=== PATIENT | female | born 1960 | race Caucasian/White ===

== ENCOUNTER 2019-08-24 10:07 | Outpatient (CLI) | payer BC ==
--- NOTE | 2019-08-24 10:35 | ULT ---
EXAM: US Abdominal CLINICAL HISTORY: Elevated liver enzymes. COMPARISON: None. FINDINGS: Pancreas: The head and proximal body of the pancreas have a normal echotexture IVC: Visualized IVC has a normal caliber. Aorta: Visualized aorta has a normal caliber. Liver:Heterogeneous echotexture of liver which may be due to hepatic steatosis or hepatocellular dise ase. Limited evaluation for hepatic masses and intrahepatic biliary dilatation. The contour of the hepatic margin is maintained. Right hepatic lobe measures 20.2 cm. Gallbladder: No sonographic evidence of cholelithiasis, gallbladder wall thickening or pericholecysti c fluid. Jameson's sign:Negative CBD: 0.4 cm common bile duct diameter Portal vein: Patent. Appropriate directional flow. Right kidney: Normal cortical echotexture. No hydronephrosis. Right kidney measuring 4.7 x 11.0 x 5. 2 cm in length. Left kidney: No hydronephrosis. Questionable dromedary hump versus midpole cortical mass, incompletel y evaluated.. Left kidney measuring 5.9 x 5.9 x 11.7 cm in length Spleen: Normal echotexture, measuring 10.6 cm IMPRESSION: 1. No sonographic evidence of cholelithiasis or cholecystitis 2. Degenerative changes echotexture liver which may be due to hepatic steatosis or hepatocellular dis ease. If there is concern for hepatic masses, liver mass protocol CT or abdomen MRI can be performed. Mild hepatomegaly 3. Questionable left renal mass. Further evaluation with abdomen MRI or CT using renal mass protocol is recommended CODE T
== END 2019-08-24 10:08 | disposition home or self-care (01) ==
LOC: BICULT 10:07
PROVIDERS: ATTEND Family Medicine
DX: R74.8 Abnormal levels of other serum enzymes (principal); R93.2 Abnormal findings on diagnostic imaging of liver and biliary tract; R16.0 Hepatomegaly, not elsewhere classified
CPT/HCPCS: 93975

== ENCOUNTER 2019-09-13 13:04 | Outpatient (CLI) | payer BC ==
--- NOTE | 2019-09-13 14:19 | CT ---
CT Abdomen W WO Con History: Renal mass. Comparison: Ultrasound abdomen August 24, 2019 Findings: Lung bases are clear. No pericardial effusion. Diffuse hepatic steatosis. 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 Left renal dromedary hump. No abnormal renal mass. No nephroureterolithiasis. No dilated loops of bowel in the abdomen. No acute osseous abnormality. L4/L5 degenerative disc space height loss with disc osteophyte complex. On the delayed phase of contrast no filling defects within the renal calyces, pelvis by, nor proximal ureter. The distal ureters are not interrogated on this exam. Small fat-containing umbilical hernia. Circumferential disc bulge at L3/L4 does cause some mild spina l canal narrowing. Impression: Left renal dromedary hump. No abnormal suspicious enhancing mass.
[2019-09-13] MEDS ORDERED: Iopamidol-370 76% 500 ML 1 ML ONE (16:29)
== END 2019-09-13 13:05 | disposition home or self-care (01) ==
LOC: BICCT 13:04
PROVIDERS: ATTEND Family Medicine
DX: N28.89 Other specified disorders of kidney and ureter (principal)
CPT/HCPCS: 74170; Q9967

== ENCOUNTER 2020-08-23 09:58 | Outpatient (CLI) | payer BC | END 2020-08-23 09:59 | disposition home or self-care (01) | LOC: BICMAMMO 09:58 | PROVIDERS: ATTEND Family Medicine | DX: Z12.31 Encounter for screening mammogram for malignant neoplasm of breast (principal); M47.22 Other spondylosis with radiculopathy, cervical region | CPT/HCPCS: 72040; 77063; 77067 ==